=== PATIENT | male | born 1960 | race Caucasian/White ===

== ENCOUNTER 2017-04-27 18:52 | Emergency (ER) | payer OTHER ==
[2017-04-27 18:58] VITALS: TEMP 98.2
--- NOTE | 2017-04-27 19:17 | EDPHY ---
H & P Stated Complaint: released from hospital today, S/P shoulder surgery. Sent by for low O2. Time Seen by Provider: 04/27/17 18:54 HPI/ROS: Chief Complaint: Low oxygen levels HPI: A 56-year-old male who had a right shoulder rotator cuff repair by Dr. Richards this afternoon. In recovery room patient was noted to be hypoxic with blood oxygen saturations of 83-90%. Patient was sent home but at home he checked his own pulse oximetry which was noted to be in the 83-90% after he took his pain medicines and was drifting off to sleep. He does have a history of sleep apnea but is not currently using BiPAP. He is presenting with concerns about his blood oxygen level being low. Patient states that he has several similar episodes with low blood oxygen levels after surgeries in the past. Denies any chest pain. No leg pain or swelling. No cough. No fevers or chills. Patient does state that he took 2 Percocet about 6 o'clock tonight. ROS: 10 point Review of Systems is negative except as noted in the HPI. PMH: Sleep apnea Social History: No smoking Family History: non-contributory Physical Exam: Gen: Awake, Alert, No Distress HEENT: Nose: no rhinorrhea Eyes: PERRLA, EOMI Mouth: Moist mucosa Neck: Supple, no JVD Chest: nontender, lungs clear to auscultation Heart: S1, S2 normal, no murmur Abd: Soft, non-tender, no guarding Back: no CVA tenderness, no midline tenderness Ext: Right shoulder immobilizer with dressings in place Skin: no rash Neuro: CN II-XII intact, Sensation grossly intact, Strength 5/5 in bilateral upper and lower extremities - Personal History Current Tetanus Diphtheria and Acellular Pertussis (TDAP): Yes - Medical/Surgical History Hx Asthma: No Hx Chronic Respiratory Disease: No Hx Diabetes: No Hx Cardiac Disease: No Hx Renal Disease: No Hx Cirrhosis: No Hx Alcoholism: No Hx HIV/AIDS: No Hx Splenectomy or Spleen Trauma: No Other PMH: Right rotator cuff surgery 04/26/17. Back surgery - 2007 - Social History Smoking Status: Never smoked Constitutional: Initial Vital Signs Temperature (C) 36.8 C 04/27/17 18:54 Heart Rate 101 H 04/27/17 18:54 Respiratory Rate 16 04/27/17 18:54 Blood Pressure 128/77 H 04/27/17 18:54 O2 Sat (%) 88 L 04/27/17 18:54 O2 Delivery Mode Room Air O2 (L/minute) 2 Allergies/Adverse Reactions: No Known Allergies Allergy (Unverified 04/23/09 09:54) Home Medications: Medication Instructions Recorded Diazepam [Valium 10 MG (*)] 0.5 - 1 tab PO Q6PRN PRN #15 tab 04/23/09 NO HOME MEDS 04/23/09 oxyCODONE/APAP 5/325 [Percocet 5 mg PO Q4-6PRN PRN #15 tab 04/23/09 5/325 (*)] Medical Decision Making ED Course/Re-evaluation: 56-year-old male with hypoxemia after shoulder surgery today. He has had similar episodes in the past. Patient is only couple hours after surgery and is not have any findings suggestive of acute PE or infiltrate. His lungs are clear. I have discussed it with Nelli Nichols, the PA for Dr. Richards. Plan will be to discharge the patient home on home oxygen for several days. He will follow up with Dr. Richards in the office. He will return for any worsening symptoms. Departure - Departure Disposition: Home, Routine, Self-Care Clinical Impression: Hypoxia Condition: Good Instructions: Hypoxia (ED) Additional Instructions: Follow up with Dr. Richards in 2-3 days for further evaluation. Return emergency department for increasing shortness of breath, chest pain, fevers, chills, or any other concerns. Referrals: Cesar Partida DO [Primary Care Provider] - As per Instructions Asha Richards MD [Medical Doctor] - As per Instructions
[2017-04-27] MEDS ORDERED: OXYCODONE/APAP 5/325 TAB PO ONE (22:03)
[2017-04-27 22:10] VITALS: BP 133/87; PULSE 102; RESP 20; O2SAT 93
== END 2017-04-27 22:22 | disposition home or self-care (01) ==
DX: R09.02 Hypoxemia (principal)